=== PATIENT | female | born 1980 | race Caucasian/White ===

== ENCOUNTER 2018-12-24 15:16 | Emergency (ER) | payer MEDICAID ==
[2018-12-24] MEDS: METOCLOPRAMIDE 10 MG TAB PO (16:51)
[2018-12-24] MEDS: DIPHENHYDRAMINE 2.5 MG/ML 5ML CUP PO (16:51)
[2018-12-24] MEDS: ACETAMINOPHEN 500 MG TAB PO (16:51)
[2018-12-24] MEDS: KETOROLAC 60 MG INJ IM (16:52)
[2018-12-24 17:10] LABS: ADD UMIC YES; UR ASCORBIC ACID NEGATIVE (NEGATIVE); UR BACTERIA FEW /HPF (NONE SEEN); UR BILIRUBIN (Dip) NEGATIVE (NEGATIVE); UR BLOOD (Dip) NEGATIVE (NEGATIVE); UR CLARITY CLEAR (CLEAR); UR COLOR YELLOW (YELLOW); UR GLUCOSE (Dip) NEGATIVE (NEGATIVE); UR KETONES (Dip) NEGATIVE (NEGATIVE); UR LEUKOCYTE ESTERASE (Dip) TRACE Leu/ul (NEGATIVE); UR MUCUS FEW /HPF (NONE SEEN); UR NITRITE (Dip) NEGATIVE (NEGATIVE); UR RBC 1 /HPF (0-5); UR SPECIFIC GRAVITY (Dip) 1.013 (1.003-1.030); UR SQUAMOUS EPITHELIAL CELL FEW /HPF (FEW); UR TOTAL PROTEIN (Dip) NEGATIVE (NEGATIVE); UR UROBILINOGEN (Dip) NEGATIVE (NEGATIVE); UR WBC 3 /HPF (0-5)
[2018-12-24] MEDS: traMADol 50 MG TAB PO (18:48)
[2018-12-24] MEDS: FLUORESCEIN STRIP LEFT EYE (19:13)
[2018-12-24] MEDS: TETRACAINE 0.5% 4 ML OPH LEFT EYE (19:13)
== END 2018-12-24 19:30 | disposition home or self-care (01) ==
LOC: FTE 15:16
DX: H18.821 Corneal disorder due to contact lens, right eye (principal); N39.0 Urinary tract infection, site not specified; M79.18 Myalgia, other site
CPT/HCPCS: 81001; 81025; 96372; 99284-25